=== PATIENT | male | born 1975 | race Caucasian/White ===

== ENCOUNTER 2016-10-04 21:59 | Emergency (ER) | payer OTHER ==
[~2016-10-04] VITALS: Ht 175.3 cm; Wt 77.0 kg
[~2016-10-04 21:59] MED LIST: AZIT250T94 PO; PROM6.25 PO
[2016-10-04 22:01] VITALS: Ht 175.3 cm; Wt 77.0 kg
[2016-10-04] MEDS ORDERED: BENZ100C70 PO (22:45)
--- NOTE | 2016-10-05 01:20 | ERA ---
ER Documentation Chief Complaint Date/Time DATE: 10/05/16 TIME: 01:18 Chief Complaint cough x 1 week. sore throat HPI This is a 40-year-old otherwise healthy female who presents with a chief complaint of cough 1 week. Patient was seen by another ED and diagnosed with a viral illness and given cough syrup for symptomatic relief. Patient states today that he has started to produce clear to yellow phlegm. Patient also states that the cough medicine he was previously given has ran out and was no longer working. Patient has no other complaints at this time and denies all other symptoms. Patient has a history of seasonal allergies. ROS All systems reviewed and are negative except as per history of present illness. Medications Home Meds Active Scripts Benzonatate* (Tessalon Perle*) 100 Mg Capsule, 100 MG PO Q8H Y for COUGH for 3 Days, CAP Prov:RAYMOND MORAN PA-C 10/04/16 Promethazine w/Codeine* (Phenergan w/Codeine* Syrup) 5 Ml Syrup, 5 ML PO Q4H Y for COUGH, #4 OZ Prov:STACY COREAS PA-C 10/23/15 Azithromycin* (Zithromax*) 250 Mg Tablet, 250 MG PO .ZPACK DIRECTED, #6 TAB TAKE 500 MG (2 TABS) THE FIRST DAY THEN 250 MG (1 TAB) DAYS 2-5 Prov:STACY COREAS PA-C 10/23/15 Allergies Allergies: Coded Allergies: No Known Allergy (Unverified , 03/19/12) PMhx/Soc Medical and Surgical Hx: pt denies Medical Hx, pt denies Surgical Hx Hx Alcohol Use: No Hx Substance Use: No Hx Tobacco Use: No Smoking Status: Never smoker Physical Exam Vitals Vital Signs Date Time Temp Pulse Resp B/P Pulse Ox O2 Delivery O2 Flow Rate FiO2 10/04/16 22:01 97.9 84 20 128/81 99 Physical Exam Const: Well-appearing 40-year-old male in no acute distress Head: Atraumatic Eyes: Normal Conjunctiva ENT: Normal External Ears, Nose and Mouth. Neck: Full range of motion..~ No meningismus. Resp: Clear to auscultation bilaterally Cardio: Regular rate and rhythm, no murmurs Abd: Soft, non tender, non distended. Normal bowel sounds Skin: No petechiae or rashes Back: No midline or flank tenderness Ext: No cyanosis, or edema Neur: Awake and alert Psych: Normal Mood and Affect Procedures/MDM Otherwise healthy 40-year-old male being evaluated for cough 1 week. Patient' s pulmonary exam was unremarkable. Most likely diagnosis is seasonal rhinitis versus acute bronchitis. Patient will be given 3 days worth of Tessalon Perles for symptomatic relief. I very low suspicion for endangerment of the airway or bacterial involvement at this time. Patient will be discharged with discharge instructions and return precautions. Departure Diagnosis: Primary Impression: Acute bronchitis Qualified Code: J20.9 - Acute bronchitis, unspecified organism Condition: Stable Patient Instructions: Acute Bronchitis Additional Instructions: Follow up with your PCP within the next 1-3 days for a more thorough evaluation and a possible referral to a specialist. Return the the emergency department immediately if symptoms worsen or change. If you have any questions regarding medications, ask your pharmacist or us before you leave. If any adverse reactions occur while taking your medications, discontinue the treatment and return to the emergency department immediately. Take your medications as directed, and complete the entire course of treatment. RAYMOND MORAN PA-C October 05, 2016 01:20
== END 2016-10-04 23:09 | disposition home or self-care (01) ==
LOC: FTE 21:59
DX: J20.9 Acute bronchitis, unspecified (principal)
CPT/HCPCS: 99283